=== PATIENT | male | born 1955 | race Caucasian/White ===

== ENCOUNTER 2017-07-24 20:46 | Observation (INO) | payer OTHER ==
[~2017-07-24] VITALS: Ht 185.4 cm; Wt 147.8 kg
[~2017-07-24 20:46] MED LIST: AMBIEN10 MG PO; CYCLOBENZAPRINE5 MG PO; IBUPROFEN800 MG PO; LISINOPRIL20 MG PO; METFORMIN HCL1000 MG PO; PRAVASTATIN SOD20 MG PO; SPIRIVA1 INHALATI IH; TAMSULOSIN HCL0.4 MG PO
[2017-07-24 21:23] LABS: HEMATOCRIT 49.9 % (38.0-50.0); HEMOGLOBIN 16.8 G/DL (12.5-16.6); MCH 29.2 PG (29.0-34.0); MCHC 33.7 G/DL (30.0-36.0); MCV 86.8 FL (86-99); PLATELET COUNT 204 K/uL (156-360); RBC DIS.WIDTH-SD 40.7 % (39-53); RED BLOOD COUNT 5.75 M/uL (4.00-5.50)
[2017-07-24 21:35] LABS: CHLORIDE 103 mEq/L (99-109); SODIUM 139 mEq/L (136-147)
[2017-07-24 21:37] LABS: GLUCOSE 121 mg/dL (70-99)
[2017-07-24 21:41] LABS: GFR ESTIMATE (CALCULATED) > 59 mL/min/ (58.99-99999)
[2017-07-24 21:42] LABS: UREA NITROGEN (BUN) 13 mg/dL (9-23)
[2017-07-24 21:43] LABS: TROP-I INTERPRETATION NEGATIVE; TROPONIN-I 0.01 ng/mL (0.0-0.30)
[2017-07-24] MEDS ORDERED: CYMBALTA60 MG PO (23:11)
[2017-07-24] MEDS ORDERED: VENTOLIN HFA18 GM IH (23:12)
[2017-07-24] MEDS ORDERED: MONTELUKAST SOD10 MG PO (23:13)
[2017-07-24] MEDS ORDERED: LOW DOSE ASPIRI81 M1 PO (23:13)
[2017-07-24] MEDS ORDERED: TESSALON PERLE100 MG PO (23:13)
[2017-07-25 00:05] LABS: ALBUMIN 4.3 g/dL (3.2-4.8)
[2017-07-25 00:08] LABS: TOTAL PROTEIN 7.8 g/dL (6.4-8.3)
[2017-07-25 00:10] LABS: TOTAL BILIRUBIN 0.7 mg/dL (0.0-1.0)
[2017-07-25 00:11] LABS: ALKALINE PHOSPHATASE 22 IU/L (3-129)
[2017-07-25 00:14] LABS: ALT (GPT) 46 IU/L (3-49); AST (GOT) 31 IU/L (2-34); DIRECT BILIRUBIN 0.3 mg/dL (0.0-0.3)
[2017-07-25 00:15] LABS: LIPASE 13 U/L (1.0-51.0)
[2017-07-25 03:22] VITALS: BP 104/58
[2017-07-25 05:01] LABS: TROP-I INTERPRETATION NEGATIVE; TROPONIN-I 0.01 ng/mL (0.0-0.30)
[2017-07-25 07:08] VITALS: BP 115/63
[2017-07-25 09:31] LABS: TROP-I INTERPRETATION NEGATIVE; TROPONIN-I < 0.01 ng/mL (0.0-0.30)
[2017-07-25 11:11] VITALS: BP 154/92
== END 2017-07-25 13:15 | disposition home or self-care (01) ==
LOC: EME 20:46 → EDOF 23:14 → ENRESERV 23:15 → 5WEST 07-25 00:17 → ENPENDDIS 07-25 12:42 → 5WEST 07-25 13:15
PROVIDERS: Hospitalist; Physician Assistant
DX: R07.9 Chest pain, unspecified (principal); E11.9 Type 2 diabetes mellitus without complications; I10 Essential (primary) hypertension; E78.5 Hyperlipidemia, unspecified; G89.29 Other chronic pain; R06.02 Shortness of breath; R05 Cough; M54.2 Cervicalgia; M25.519 Pain in unspecified shoulder; J44.9 Chronic obstructive pulmonary disease, unspecified; Z82.49 Family history of ischemic heart disease and other diseases of the circulatory system; Z83.3 Family history of diabetes mellitus; Z87.891 Personal history of nicotine dependence; F12.90 Cannabis use, unspecified, uncomplicated; Z88.5 Allergy status to narcotic agent; Z79.84 Long term (current) use of oral hypoglycemic drugs; Z79.82 Long term (current) use of aspirin
CPT/HCPCS: 71046; 80048; 80076; 82948; 83690; 84484; 85027; 93005; 99281; 99285; G0378; J1885

== ENCOUNTER 2017-08-23 00:41 | Inpatient (IN) | payer OTHER ==
[~2017-08-23] VITALS: Ht 185.4 cm; Wt 141.7 kg
[~2017-08-23 00:41] MED LIST changes: +CYMBALTA60 MG PO; +LOW DOSE ASPIRI81 M1 PO; +MONTELUKAST SOD10 MG PO; +TESSALON PERLE100 MG PO; +VENTOLIN HFA18 GM IH
[2017-08-23 01:36] LABS: HEMATOCRIT 50.4 % (38.0-50.0); HEMOGLOBIN 16.6 G/DL (12.5-16.6); MCH 28.8 PG (29.0-34.0); MCHC 32.9 G/DL (30.0-36.0); MCV 87.3 FL (86-99); PLATELET COUNT 156 K/uL (156-360); RBC DIS.WIDTH-CV 13.5 % (11.8-14.6); RBC DIS.WIDTH-SD 43.1 % (39-53); RED BLOOD COUNT 5.77 M/uL (4.00-5.50); WHITE BLOOD COUNT 8.9 K/uL (4.1-10.2)
[2017-08-23 01:46] LABS: CHLORIDE 99 mEq/L (99-109); POTASSIUM 4.3 mEq/L (3.7-5.4); SODIUM 137 mEq/L (136-147)
[2017-08-23 01:47] LABS: GLUCOSE 111 mg/dL (70-99)
[2017-08-23 01:51] LABS: CREATININE 1.4 mg/dL (0.6-1.3); GFR ESTIMATE (CALCULATED) 54 mL/min/ (58.99-99999)
[2017-08-23 01:52] LABS: UREA NITROGEN (BUN) 40 mg/dL (9-23)
[2017-08-23 01:55] LABS: TROP-I INTERPRETATION NEGATIVE; TROPONIN-I < 0.01 ng/mL (0.0-0.30)
[2017-08-23 02:17] LABS: CARBON DIOXIDE (BICARBONATE) 28.5 MEQ/L (20-31)
[2017-08-23 02:26] LABS: ALBUMIN 4.1 g/dL (3.2-4.8)
[2017-08-23 02:28] LABS: TOTAL PROTEIN 6.9 g/dL (6.4-8.3)
[2017-08-23 02:30] LABS: TOTAL BILIRUBIN 0.5 mg/dL (0.0-1.0)
[2017-08-23 02:31] LABS: ALKALINE PHOSPHATASE 21 IU/L (3-129)
[2017-08-23 02:34] LABS: ALT (GPT) 81 IU/L (3-49); AST (GOT) 50 IU/L (2-34); DIRECT BILIRUBIN 0.2 mg/dL (0.0-0.3)
[2017-08-23 02:35] LABS: LIPASE 28 U/L (1.0-51.0)
[2017-08-23 05:48] VITALS: BP 118/57
[2017-08-23 08:14] VITALS: BP 135/51
[2017-08-23 11:02] VITALS: BP 117/58
[2017-08-23 11:25] LABS: APPEARANCE CLEAR ((CLEAR)); BILIRUBIN NEGATIVE; BLOOD NEGATIVE; COLOR YELLOW ((YELLOW)); GLUCOSE (STRIP) 150; KETONES NEGATIVE; LEUKOCYTES NEGATIVE; NITRITE NEGATIVE; PROTEIN (STRIP) NEGATIVE; SPECIFIC GRAVITY 1.016 (1.000-1.030); UCUL ADDED? NO; UROBILINOGEN 0.2 MG/DL (0.2-1.0)
[2017-08-23 16:05] VITALS: BP 93/44
[2017-08-23 19:33] VITALS: BP 115/55
[2017-08-24 00:21] VITALS: BP 133/60
[2017-08-24 04:39] VITALS: BP 110/57
[2017-08-24 06:28] LABS: BASOPHIL (%) 0 % (0-1); EOSINOPHIL (%) 0 % (0-5); HEMATOCRIT 48.7 % (38.0-50.0); HEMOGLOBIN 15.9 G/DL (12.5-16.6); IMMATURE GRANULOCYTE (%) 0.6 % (0.0-0.7); LYMPHOCYTE (%) 8.9 % (15-42); LYMPHOCYTE COUNT 0.8 K/uL (1.0-2.8); MCH 28.3 PG (29.0-34.0); MCHC 32.6 G/DL (30.0-36.0); MCV 86.7 FL (86-99); MONOCYTE (%) 10.6 % (3-12); MONOCYTE COUNT 0.9 K/uL (0-0.8); NEUTROPHIL (%) 79.9 % (45-76); NEUTROPHIL COUNT 6.8 K/uL (1.8-6.4); PLATELET COUNT 158 K/uL (156-360); RBC DIS.WIDTH-CV 13.2 % (11.8-14.6); RBC DIS.WIDTH-SD 42.6 % (39-53); RED BLOOD COUNT 5.62 M/uL (4.00-5.50); WHITE BLOOD COUNT 8.5 K/uL (4.1-10.2)
[2017-08-24 07:11] LABS: ALBUMIN 3.7 G/DL (3.2-4.8); CHLORIDE 100 MEQ/L (99-109); CREATININE 1.1 MG/DL (0.6-1.3); GFR ESTIMATE (CALCULATED) > 59 mL/min/ (58.99-99999); PHOSPHORUS 3.9 mg/dL (2.5-4.9); SODIUM 135 MEQ/L (136-147); UREA NITROGEN (BUN) 26 mg/dL (9-23)
[2017-08-24 07:19] LABS: GLUCOSE 206 mg/dL (70-99); POTASSIUM 5.2 MEQ/L (3.7-5.4)
[2017-08-24 08:26] VITALS: BP 121/60
[2017-08-24 12:31] VITALS: BP 122/71
[2017-08-24 17:29] VITALS: BP 142/88
[2017-08-24 17:30] LABS: UR CREATININE CONCENTRATION 93.8 MG/DL
[2017-08-24 20:22] VITALS: BP 146/76
[2017-08-25 00:15] VITALS: BP 137/68
[2017-08-25 04:16] VITALS: BP 126/83
[2017-08-25 06:55] LABS: ALBUMIN 3.6 G/DL (3.2-4.8); CHLORIDE 99 MEQ/L (99-109); CREATININE 0.8 MG/DL (0.6-1.3); GFR ESTIMATE (CALCULATED) > 59 mL/min/ (58.99-99999); GLUCOSE 230 mg/dL (70-99); PHOSPHORUS 3.7 mg/dL (2.5-4.9); POTASSIUM 4.8 MEQ/L (3.7-5.4); SODIUM 134 MEQ/L (136-147); UREA NITROGEN (BUN) 24 mg/dL (9-23)
[2017-08-25 08:00] VITALS: BP 127/85
[2017-08-25 12:44] VITALS: BP 142/67
[2017-08-25] MEDS ORDERED: OSELTAMIVIR PHO75 MG PO (15:23)
[2017-08-25] MEDS ORDERED: CEFDINIR300 MG PO (15:25)
[2017-08-25] MEDS ORDERED: FLOVENT 11120 INHALA IH (15:25)
[2017-08-25] MEDS ORDERED: SPIRIVA RESPIMAT4 GM IH (15:25)
[2017-08-25] MEDS ORDERED: PREDNISONE5 MG PO (15:26)
[2017-08-25 16:45] VITALS: BP 135/86
== END 2017-08-25 16:53 | disposition home or self-care (01) | DRG 193 ==
LOC: EME 00:41 → 5SOUTH 03:53 → EDOF 03:53 → ENRESERV 04:02 → 5SOUTH 05:36 → ENPENDDIS 08-25 15:42 → 5SOUTH 08-25 16:53
PROVIDERS: Emergency Medicine; Hospitalist; Internal Medicine Nephrology
DX: J10.1 Influenza due to other identified influenza virus with other respiratory manifestations (principal); J44.1 Chronic obstructive pulmonary disease with (acute) exacerbation; J44.0 Chronic obstructive pulmonary disease with (acute) lower respiratory infection; J20.9 Acute bronchitis, unspecified; J96.01 Acute respiratory failure with hypoxia; N17.9 Acute kidney failure, unspecified; T39.395A Adverse effect of other nonsteroidal anti-inflammatory drugs [NSAID], initial encounter; E86.0 Dehydration; I12.9 Hypertensive chronic kidney disease with stage 1 through stage 4 chronic kidney disease, or unspecified chronic kidney disease; E11.22 Type 2 diabetes mellitus with diabetic chronic kidney disease; N18.3 Chronic kidney disease, stage 3 (moderate); E78.5 Hyperlipidemia, unspecified; E78.00 Pure hypercholesterolemia, unspecified; F12.90 Cannabis use, unspecified, uncomplicated; E66.01 Morbid (severe) obesity due to excess calories; Z68.41 Body mass index [BMI] 40.0-44.9, adult; Z87.891 Personal history of nicotine dependence; Z79.82 Long term (current) use of aspirin
CPT/HCPCS: 71046; 71250; 76770; 78582; 80048; 80069; 80076; 81003; 82570; 82803; 82948; 83605; 83690; 83880; 84156; 84484; 85025; 85027; 87040; 87070; 87205; 87502; 93005; 93306; 93970; 94640; 94640 76; 94760; 94799; 99202; 99281; 99285; A9539; A9540; J0692; J1650; J1815; J1956; J2930; J7030